=== PATIENT | male | born 1945 | race Caucasian/White ===

== ENCOUNTER → 2017-07-11 | Outpatient (CLI) | payer BC ==
[~2017-07-11] MED LIST: APRESOLINE25 MG PO; ASPIRIN325 MG PO; CATAPRES0.1 M1 PO; CRESTOR20 MG PO; FIBER TABS625 MG PO; GLUCOPHAGE1000 MG PO; HYZAAR 100-12.1 EACH PO; HYZAAR 100-251 EACH PO; LEVOTHROID (SY50 MCG PO; LOPRESSOR25 MG PO; NORCO 5-325 TA1 EACH PO; NORVASC10 MG PO; TRIAMCINOLONE454 GM TOP
[2017-07-11 09:11] LABS: ALBUMIN 3.7 gm/dL (3.5-5.0); ANION GAP 12.8 (10.0-19.0); CALCIUM 9.1 mg/dL (8.5-10.5); CREATININE 1.4 mg/dL (0.6-1.3); POTASSIUM 3.8 mMol/L (3.7-5.1); TOTAL PROTEIN 7.6 g/dL (6.0-8.4)
== END ==
LOC: LNHI 08:35
PROVIDERS: Internal Medicine Cardiovascular Disease
DX: I10 Essential (primary) hypertension (principal); I25.10 Atherosclerotic heart disease of native coronary artery without angina pectoris